=== PATIENT | female | born 1985 | race Caucasian/White ===

== ENCOUNTER → 2024-05-19 | Outpatient (CLI) | payer BC ==
[~2024-05-19] MED LIST: HYDR1TAB94 PO; IBU800 MG PO; Naprosyn500 MG PO; TRAM50 PO; Veetids 500500 MG PO
[2024-05-27 07:06] LABS: HPV HIGH RISK BY TMA Not Detected; HPV SOURCE Cervical
== END ==
LOC: LAB 12:47 → LAB SHORT 12:47
PROVIDERS: Family Medicine
DX: Z01.419 Encounter for gynecological examination (general) (routine) without abnormal findings (principal)
CPT/HCPCS: 87624; G0123

== ENCOUNTER 2025-03-09 17:29 | Emergency (ER) | payer BC ==
[~2025-03-09] VITALS: Ht 170.2 cm; Wt 108.9 kg
[2025-03-09] MEDS ORDERED: RX Prepack 6 Tabs Oxycodone 5mg UD ONE (19:45)
[2025-03-09 19:54] VITALS: BP 142/64
== END 2025-03-09 20:55 | disposition home or self-care (01) ==
LOC: ER 17:29
DX: K02.9 Dental caries, unspecified (principal); F17.200 Nicotine dependence, unspecified, uncomplicated
CPT/HCPCS: 64400; 99282-25; A9270